=== PATIENT | female | born 1985 ===

== ENCOUNTER 2021-09-09 09:00 | Outpatient (RCR) | payer OTHER, SELFPAY ==
[2021-08-24 11:27] VITALS: BMI 28.3
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
--- NOTE | 2021-09-02 15:18 | PC.NURSE ---
Pt called and left me a message stating it's okay to call her DCF worker back. I called and left a message with Batool pt's [facility] social work specialist, informing her of pt's active participation in the program.
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
--- NOTE | 2021-09-05 15:00 | HO.PHPPROGNO ---
Subjective Subjective Date of Service: 09/05/21 Reason For Visit: Major Depression Guardianship: No Medical Problems Affecting Mental Status: No Interim History: Dynasty reports ?I feel okay?. Reports medications appear to be effective, no side effects. States continues with some dysphoric mood and anxiety, although slowly improving. No thoughts of harm to self or others, no safety concern. Maintaining abstinence from alcohol. Medication Compliance: Yes Side effects from medications: No Attending Groups: Yes Review of Systems Acute medical concerns: No Medical Review of Systems: unchanged Review of Systems Review of Systems Yes all other systems are reviewed and are negative Constitutional: Reports no additional constitutional complaints Mental Status Exam Mental Status Exam Narrative: Well developed, well nourished female, in NAD. No involuntary movements noted, no tics or tremors, motor activity calm. Fully attentive during encounter. Patient Appearance: Well Grooomed and Appropriate Patient Orientation: Person, Place, Time and Situation Level of Consciousness: Awake, Appropriate and Alert Patient Behavior: Appropriate, Cooperative and Good Eye Contact Mood Description: Appropriate, Depressed and Anxious Affect Description: Appropriate, Depressed and Anxious Patient Cognition Impaired: No Ability to Follow Directions: Excellent Speech Pattern: Clear, Appropriate and Spontaneous Speech Memory Description: Intact Hallucinations: None Delusions: Not Present Thought Process: Intact, Goal Oriented and Linear Thought Content: positive for Intact, positive for Goal Oriented and positive for Linear Depressive Symptoms: Increased Anxiety, Loss of Int. in Activity, Feelings of Worthlessness, Hopelessness, Increased Fatigue and Low Self Esteem Judgement: Fair Diagnostics Vital Signs (24Hr): BMI result Body Mass Index 28.3 Assessment & Plan Assessment & Plan (1) ELSA (generalized anxiety disorder): Status: Acute Code(s): F41.1 - Generalized anxiety disorder Assessment and Plan: Dynasty reports ?I feel okay?. Reports medications appear to be effective, no side effects. States continues with some dysphoric mood and anxiety, although slowly improving. No thoughts of harm to self or others, no safety concern. Maintaining abstinence from alcohol. (2) MDD (major depressive disorder), recurrent episode, severe: Status: Acute Code(s): F33.2 - Major depressive disorder, recurrent severe without psychotic features (3) Alcohol use disorder, moderate, in early remission: Status: Acute Code(s): F10.21 - Alcohol dependence, in remission Assessment and Plan: Continues attendance at online 12 step recovery meetings, continues abstinence. Assessment and Plan: Client does not need any medication refills at this time. Reports overall some improvement, although still struggling with anxiety and depressive symptoms. No safety concerns. 1. Continue with current [facility] plan of care. 2. Follow up as per protocol. Patient educated on: diagnosis, medication risk/benefits, substance abuse and therapeutic strategies Informed Consent: understands Reason for contiued partial hosp. stay Substantial Risk for: inability to function and med/psych decompensation Certification I certify that partial hospital treatment is medically necessary due to the symptoms and problems resulting from the patient's mental illness and the failure to treat the patient at the partial hospital level of care would likely result in the patient requiring inpatient psychiatric care which could not be prevented at a less intensive level of care. I spent minutes with the patient and/or on the patient floor today, greater than?50% of which was spent counseling/coordinating care. Discharge Plan Discharge Attending provider: Stef Bella Primary Care Provider: Jodie Biswas Medications: No Action quetiapine [Seroquel] 25 mg Tablet 25 mg PO BEDTIME RF: 0 nicotine (polacrilex) 2 mg Gum 2 mg BUCCAL Q2H RF: 0 hydroxyzine HCl 50 mg Tablet 50 mg PO TID PRN (Reason: Anxiety) RF: 0 nicotine 21 mg/24 hr Patch 24 Hour 1 patch TRANSDERMAL DAILY RF: 0 sertraline [Zoloft] 25 mg Tablet 25 mg PO DAILY RF: 0 sertraline [Zoloft] 50 mg Tablet 50 mg PO DAILY RF: 0 Referrals: Jodie Biswas, [employer] [Primary Care Provider] - 1 Week Telehealth Telehealth Location of provider rendering services: practice address Location of patient: address on file Patient Identification confirmed using: Name, : Yes Telehealth method: video Patient verbally consented to treatment: Yes Patient verbally consented to billing insurance company: Yes Patient informed of any privacy concerns related to visit: Yes Time spent with patient (mins): 15
--- NOTE | 2021-09-09 11:14 | P.PNPSP_ITS ---
Subjective Subjective Date of Service: 09/09/21 Reason For Visit: Major Depression Healthcare Proxy: No Guardianship: No Medical Problems Affecting Mental Status: No Interim History: Dynasty reports I'm okay . Less depressed, less anxious. Remains abstinent from alcohol. Future focused. Current medications working well, no changes, no refills needed. No thoughts of harm to self or others, no safety concerns. Medication Compliance: Yes Side effects from medications: No Attending Groups: Yes Review of Systems Acute medical concerns: No Medical Review of Systems: unchanged Review of Systems Review of Systems Yes all other systems are reviewed and are negative Constitutional: Reports no additional constitutional complaints Mental Status Exam Mental Status Exam Narrative: Presents with stable mood and affect. Some depression noted, although improving. Patient Appearance: Well Grooomed and Appropriate Patient Orientation: Person, Place, Time and Situation Level of Consciousness: Awake, Appropriate and Alert Patient Behavior: Appropriate, Cooperative and Good Eye Contact Mood Description: Appropriate Affect Description: Appropriate and Depressed (continues depressed, although improving. ) Patient Cognition Impaired: No Ability to Follow Directions: Excellent Speech Pattern: Clear, Appropriate and Spontaneous Speech Memory Description: Intact Hallucinations: None Delusions: Not Present Thought Process: Intact, Goal Oriented and Linear Thought Content: positive for Intact, positive for Goal Oriented, positive for Linear and positive for Logical Depressive Symptoms: Loss of Int. in Activity and Low Self Esteem Judgement: Good Diagnostics Vital Signs (24Hr): BMI result Body Mass Index 28.3 Assessment & Plan Assessment & Plan (1) MDD (major depressive disorder), recurrent episode, severe: Status: Acute Code(s): F33.2 - Major depressive disorder, recurrent severe without psychotic features Assessment and Plan: Describes mood as I'm okay . States she plans to look for a new job soon. Feels stable for discharge from [facility]. Continues with some depression and anxiety, but states that her symptoms are much improved. No thoughts of harm to self or others, no safety concerns. Says current medications are working, does not want any med changes. Does not need any refills. Expressed hope for future. Reports that as she is working on her mental health, she has found change difficult, but continues to work through process. Remains abstinent from alcohol. Client continues to search for and utilize supports in community. This junior technical writer recommended [facility], as she has a child with PDD, and has had some difficulty locating support network. (2) ELSA (generalized anxiety disorder): Status: Acute Code(s): F41.1 - Generalized anxiety disorder (3) Alcohol use disorder, moderate, in early remission: Status: Acute Code(s): F10.21 - Alcohol dependence, in remission Assessment and Plan: Continues to utilize 12-step focused meetings. Assessment and Plan: Client appears stable for discharge from [facility] at this time. 1. Will follow up with outpatient providers going forward. Patient educated on: diagnosis, medication risk/benefits, substance abuse and therapeutic strategies Informed Consent: understands Reason for contiued partial hosp. stay Substantial Risk for: stable for discharge Certification I certify that partial hospital treatment is medically necessary due to the symptoms and problems resulting from the patient's mental illness and the failure to treat the patient at the partial hospital level of care would likely result in the patient requiring inpatient psychiatric care which could not be prevented at a less intensive level of care. I spent minutes with the patient and/or on the patient floor today, greater than?50% of which was spent counseling/coordinating care. Discharge Plan Discharge Attending provider: Stef Bella Primary Care Provider: Jodie Biswas Medications: No Action quetiapine [Seroquel] 25 mg Tablet 25 mg PO BEDTIME RF: 0 nicotine (polacrilex) 2 mg Gum 2 mg BUCCAL Q2H RF: 0 hydroxyzine HCl 50 mg Tablet 50 mg PO TID PRN (Reason: Anxiety) RF: 0 nicotine 21 mg/24 hr Patch 24 Hour 1 patch TRANSDERMAL DAILY RF: 0 sertraline [Zoloft] 25 mg Tablet 25 mg PO DAILY RF: 0 sertraline [Zoloft] 50 mg Tablet 50 mg PO DAILY RF: 0 Referrals: Jodie Biswas, FAC ENGINEER [Primary Care Provider] - 1 Week Telehealth Telehealth Location of provider rendering services: practice address Location of patient: address on file Patient Identification confirmed using: Name, : Yes Telehealth method: video Patient verbally consented to treatment: Yes Patient verbally consented to billing insurance company: Yes Patient informed of any privacy concerns related to visit: Yes Time spent with patient (mins): 15
--- NOTE | 2021-09-09 11:46 | PC.NURSE ---
Patient is scheduled to discharge from the program today. Spoke to Ever and reviewed her medications with her. Patient reports taking her medications as prescribed. Feels ok regarding leaving the program, feels ready for discharge. Patient denied Si or thoughts to harm herself, denied any safety issues.
--- NOTE | 2021-09-09 15:07 | PC.NURSE ---
I called and left a message for pt's therapist at [facility], Tricia Salazar HOISTING ENGINE OPERATOR ([phone]). I informed her of pt's successful discharge from [facility] today.
== END 2021-09-12 07:31 | disposition home or self-care (01) ==
LOC: HO.PHPA 09:00
PROVIDERS: PCP Nurse Practitioner Family; Visit Provider Psychiatry & Neurology Psychiatry
DX: F33.2 Major depressive disorder, recurrent severe without psychotic features (principal); F41.1 Generalized anxiety disorder; F10.21 Alcohol dependence, in remission
CPT/HCPCS: 90791; 90853